=== PATIENT | male | born 1990 | race Caucasian/White ===

== ENCOUNTER 2018-04-15 11:47 | Emergency (ER) | payer OTHER ==
[2018-04-15] MEDS ORDERED: Adenocard IV 6 MG/2 ML IV ONE (11:59)
[2018-04-15] MEDS ORDERED: Sodium Chloride 0.9% 1000 ML 1,000 ML ONE ×2 (12:00→13:29)
[2018-04-15] MEDS ORDERED: Cordarone 150 MG/3 ML Injection ONE ×2 (12:06→14:32)
[2018-04-15] MEDS ORDERED: Sodium Chloride 0.9% 100 ML IVPB 100 ML IV ONE ×2 (12:06→14:33)
[2018-04-15] MEDS ORDERED: NEXTERONE 360 MG/200 ML BAG 360 MG/200 ML PLAST..BAG IV ONE (12:26)
[2018-04-15] MEDS ORDERED: MORPHINE SULFATE 2 MG INJ ONE (13:28)
[2018-04-15 13:51] LABS: BASOPHIL % 0.2 % (0.0-0.4); Basophil (Absolute #) 0.03 (0-0.4); Eosinophil % 0.7 % (0.00-5.0); Eosinophil (Absolute #) 0.09 (0-0.5); Granulocyte Absolute (ANC) 10.24 (1.4-6.9); Granulocytes % 78.1 % (36.0-66.0); Hematocrit 48.7 % (42-50); Hemoglobin 16.3 gm/dl (12.5-18.0); Lymphocyte (Absolute #) 2.08 (1.0-4.6); Lymphocytes % 15.9 % (24.0-44.0); Mean Cell Volume 92.8 fl (78-100); Mean Corpuscular Hgb Concent. 33.5 g/dl (32-36); Monocyte (Absolute #) 0.67 (0.0-1.3); Monocytes % 5.1 % (0.0-12.0); Platelet Count 198 K/mm3 (150-450); Red Blood Count 5.25 M/mm3 (4.1-5.6); Red Cell Distribution Width 12.6 % (11.5-14.0); White Blood Count 13.1 K/mm3 (4.0-10.5)
[2018-04-15 13:53] LABS: ALBUMIN 4.8 g/dL (3.5-5.0); ALKALINE PHOSPHATASE 29 U/L (38-126); ANION GAP 14.5 MEQ/L (5-15); BLOOD UREA NITROGEN 10 mg/dL (9-20); CHLORIDE 107 mmol/L (98-107); Calcium 9.4 mg/dL (8.4-10.2); Carbon Dioxide 24 mmol/L (22-30); Creatinine 1 1.06 mg/dL (0.66-1.25); Glucose 136 mg/dL (74-106); SGOT/AST 23 U/L (17-59); SGPT/ALT 21 U/L (0-50); SODIUM 142 mmol/L (137-145); Total Protein 8.3 g/dL (6.3-8.2)
--- NOTE | 2018-04-15 14:45 | ERPHSYRPT ---
- History of Present Illness Historian: patient Exam Limitations: no limitations Patient Subjective Stated Complaint: pt here for fast heart rate and chest pain today, he states he forgot to take hes meds last night Triage Nursing Assessment: pt alert, resp easy, skin w/d/p, chest clear, no edema Physician History: Pt is a 27 y/o male with a h/o of arrhythmias, that presented to the ER complaining of chest pain. Pt had multiple ablation procedures, and he is on Metoprolol at home. Yesterday he fell asleep and forgot to take his Metoprolol , and when he came to the ER, he was in VT at 200s. Pt was ambulatory, A&Ox4, and was uncomfortable wit chest pain. Timing/Duration: today Activities at Onset: none Quality: aching Location: substernal Chest Pain Radiation: no radiation Severity of Pain-Max: moderate Severity of Pain-Current: moderate Modifying Factors: Improves With: nothing, morphine Associated Symptoms: denies symptoms Nitro Today/Relief: no nitro taken today Aspirin Treatment Today: no aspirin today Allergies/Adverse Reactions: ibuprofen [From Motrin] Allergy (Verified 04/15/18 12:16) Home Medications: Divalproex Sodium ER 250 mg [Depakote EXTENDED RELEASE 250 MG] 500 mg DAILY 04/15/18 [History] Gabapentin 100 mg TID 04/15/18 [History] Metoprolol Tartrate 25 mg [Lopressor 25MG Tab] 12.5 mg BID 04/15/18 [ History] PANTOPRAZOLE 40 mg Tablet [Protonix 40MG Tablet] 40 mg DAILY 04/15/18 [ History] Topiramate 25 mg [Topamax 25 MG] 50 mg DAILY 04/15/18 [History] Hx Influenza Vaccination/Date Given: Yes Hx Pneumococcal Vaccination/Date Given: No Immunizations Up to Date: Yes - Review of Systems Constitutional: No Fever, No Chills Eyes: No Symptoms Ears, Nose, & Throat: No Symptoms Respiratory: No Cough, No Dyspnea Cardiac: Chest Pain, Palpitations Abdominal/Gastrointestinal: No Abdominal Pain, No Nausea, No Vomiting, No Diarrhea Musculoskeletal: No Back Pain, No Neck Pain Neurological: No Dizziness, No Focal Weakness, No Sensory Changes Endocrine: No Symptoms - Past Medical History Pertinent Past Medical History: Yes Cardiac History: Other Other Medical History: fast heart rate - Past Surgical History Past Surgical History: Yes Musculoskeletal: Orthopedic Surgery Other Surgical History: hip surgery - Social History Smoking Status: Current every day smoker Exposure to second hand smoke: No Drug Use: none Patient Lives Alone: No - Nursing Vital Signs Nursing Vital Signs: Initial Vital Signs Temperature 97.0 F 04/15/18 11:51 Pulse Rate 200 H 04/15/18 11:51 Respiratory Rate 18 04/15/18 11:51 Blood Pressure 142/0 04/15/18 11:51 O2 Sat by Pulse Oximetry 100 04/15/18 11:51 Pain Scale Pain Intensity 4 - Physical Exam General Appearance: moderate distress, alert Eye Exam: PERRL/EOMI, eyes nml inspection Ears, Nose, Throat Exam: normal ENT inspection, moist mucous membranes Respiratory Exam: normal breath sounds, lungs clear, No respiratory distress Cardiovascular Exam: normal peripheral pulses, tachycardia (220 VT) Gastrointestinal/Abdomen Exam: soft, No tenderness, No mass Extremity Exam: normal inspection, normal range of motion Neurologic Exam: alert, oriented x 3, cooperative, normal mood/affect, sensation nml, No motor deficits SpO2: 96 - Course EKG Interpreted by Me: Other (VT in 220s) Ordered Tests: Active Orders 24 hr Category Date Time Status IV Insertion STAT Care 04/15/18 12:32 Active IV Insertion STAT Care 04/15/18 12:33 Active IV Insertion-2nd Peripheral STAT Care 04/15/18 12:32 Active CBC W DIFF Stat Lab 04/15/18 12:28 Completed CMP Stat Lab 04/15/18 12:28 Completed D-DIMER QUANTITATION Stat Lab 04/15/18 12:28 Received PROTIME WITH INR Stat Lab 04/15/18 12:28 Received TROPONIN Q3H Lab 04/15/18 12:28 Completed TROPONIN Q3H Lab 04/15/18 16:45 Ordered TROPONIN Q3H Lab 04/15/18 19:45 Ordered TROPONIN Q3H Lab 04/15/18 22:45 Ordered TROPONIN Q3H Lab 04/16/18 01:45 Ordered Medication Summary Discontinued Medications Generic Name Dose Route Start Last Admin Trade Name Freq PRN Reason Stop Dose Admin Adenosine Confirm 04/15/18 11:59 Adenocard Iv 6 Mg/2 Ml Administered 04/15/18 12:00 Dose 18 mg IV .STK-MED ONE Amiodarone HCl Confirm 04/15/18 12:06 Cordarone 150 Mg/3 Ml Injection Administered 04/15/18 12:07 Dose 150 mg .ROUTE .STK-MED ONE Amiodarone HCl Confirm 04/15/18 14:32 Cordarone 150 Mg/3 Ml Injection Administered 04/15/18 14:33 Dose 150 mg .ROUTE .STK-MED ONE Sodium Chloride Confirm 04/15/18 12:00 Sodium Chloride 0.9% 1000 Ml Administered 04/15/18 12:01 Dose 1,000 mls @ ud .ROUTE .STK-MED ONE Sodium Chloride Confirm 04/15/18 12:06 Sodium Chloride 0.9% 100 Ml Ivpb Administered 04/15/18 12:07 Dose 100 mls @ ud IV .STK-MED ONE Amiodarone HCl/Dextrose Confirm 04/15/18 12:26 Nexterone 360 Mg/200 Ml Bag Administered 04/15/18 12:27 Dose 360 mg in 200 mls @ ud IV .STK-MED ONE Sodium Chloride Confirm 04/15/18 13:29 Sodium Chloride 0.9% 1000 Ml Administered 04/15/18 13:30 Dose 1,000 mls @ ud .ROUTE .STK-MED ONE Sodium Chloride Confirm 04/15/18 14:33 Sodium Chloride 0.9% 100 Ml Ivpb Administered 04/15/18 14:34 Dose 100 mls @ ud IV .STK-MED ONE Morphine Sulfate Confirm 04/15/18 13:28 Morphine Sulfate 2 Mg Inj Administered 04/15/18 13:29 Dose 2 mg .ROUTE .STK-MED ONE Lab/Rad Data: Laboratory Result Diagrams 04/15/18 12:28 04/15/18 12:28 Laboratory Results 04/15/18 04/15/18 04/15/18 Range/Units 12:28 12:28 12:28 WBC 13.1 H (4.0-10.5) K/mm3 RBC 5.25 (4.1-5.6) M/mm3 Hgb 16.3 (12.5-18.0) gm/dl Hct 48.7 (42-50) % MCV 92.8 (78-100) fl MCH 31.0 (26-32) pg MCHC 33.5 (32-36) g/dl RDW 12.6 (11.5-14.0) % Plt Count 198 (150-450) K/mm3 MPV 12.0 H (6-9.5) fl Gran % 78.1 H (36.0-66.0) % Eos # (Auto) 0.09 (0-0.5) Absolute Lymphs (auto) 2.08 (1.0-4.6) Absolute Monos (auto) 0.67 (0.0-1.3) Lymphocytes % 15.9 L (24.0-44.0) % Monocytes % 5.1 (0.0-12.0) % Eosinophils % 0.7 (0.00-5.0) % Basophils % 0.2 (0.0-0.4) % Absolute Granulocytes 10.24 H (1.4-6.9) Basophils # 0.03 (0-0.4) Sodium 142 (137-145) mmol/L Potassium 4.0 (3.5-5.1) mmol/L Chloride 107 (98-107) mmol/L Carbon Dioxide 24 (22-30) mmol/L Anion Gap 14.5 (5-15) MEQ/L BUN 10 (9-20) mg/dL Creatinine 1.06 (0.66-1.25) mg/dL Estimated GFR > 60.0 ML/MIN Glucose 136 H (74-106) mg/dL Calcium 9.4 (8.4-10.2) mg/dL Total Bilirubin 0.70 (0.2-1.3) mg/dL AST 23 (17-59) U/L ALT 21 (0-50) U/L Alkaline Phosphatase 29 L (38-126) U/L Troponin I 0.081 H* (0.000-0.034) ng/mL Serum Total Protein 8.3 H (6.3-8.2) g/dL Albumin 4.8 (3.5-5.0) g/dL - Progress Progress: unchanged Air Movement: fair Progress Note: 04/15/18 14:45 Pt was given Adenosine 6, and then 12. There was no change. Pt was given 150mg over 10min, and still there was no change in rhythem. Pt was on Amio gtt , and [facility] was called. Mahamed Frost suggested to give another dose of Amio 150, and if pt will be unstable, and decompensats, to shock him. Pt was accepted to the [facility], and Dr Sung is accepting. Blood Culture(s) Obtained: No Antibiotics given: No Will see patient in: office ([facility], [place].) - Departure Time of Disposition: 14:48 Departure Disposition: Transfer Clinical Impression: Ventricular tachycardia Condition: Stable Critical Care Time: Yes Critical Care Time(excluding separately billable procedures): 30-74 minutes Referrals: DOCTOR,NO FAMILY [Primary Care Provider] - Additional Instructions: Pt will be transfered with ACLS, to the [facility] in [facility]. Dr Mahamed Sung is accepting.
[2018-04-15 14:48] LABS: INR 1.21 (0.8-3.0); PROTIME 14.1 SECONDS (8.83-12.87)
[2018-04-15 14:53] VITALS: BP 103/60; PULSE 200; O2SAT 98
[2018-04-15 14:54] LABS: D-DIMER QUANTITATION < 215 ng/mL (215-500)
== END 2018-04-15 15:14 | disposition short-term general hospital (02) ==
LOC: ED 11:47
DX: I47.2 Ventricular tachycardia (principal); R07.89 Other chest pain; Z79.899 Other long term (current) drug therapy
CPT/HCPCS: 36000; 36415; 80053; 84484; 85025; 85379; 85610; 96360; 96361; 96365; 96367; 96374; 96375; 99284; 99291; 99292; J0153; J0282; J2270